=== PATIENT | male | born 1985 | race Caucasian/White ===

== ENCOUNTER 2017-12-15 10:12 | Emergency (ER) | payer BC ==
--- NOTE | 2017-12-15 10:37 | ER ---
Nurse's Notes [facility] Name: Benjamín Rosa Age: 32 yrs Sex: Male : 1985 Arrival Date: 12/15/2017 Time: 10:15 Bed 19 Private MD: None, None Diagnosis: Superficial injury of head-Hematoma Presentation: 12/15 10:20 Presenting complaint: Patient states: had a head injury last week, +LOC, fell sv backward onto concrete and "bump" was hard at the time. Noticed on Monday that it was soft. Denies seizures. Pt reports headache since incident. Transition of care: patient was not received from another setting of care. Mechanism of Injury: resulted from impacting a hard surface, hitting concrete. Onset of symptoms was December 07, 2017. Risk Assessment: Do you want to hurt yourself or someone else? Patient reports no desire to harm self or others. Initial Sepsis Screen: Does the patient meet any 2 criteria? No. Patient's initial sepsis screen is negative. Does the patient have a suspected source of infection? No. Patient's initial sepsis screen is negative. Care prior to arrival: None. 10:20 Method Of Arrival: Ambulatory sv 10:20 Acuity: NIKI 4 sv Historical: - Allergies: 10:22 No Known Allergies; sv - Home Meds: 10:22 None [Active]; sv - PMHx: 10:22 None; sv - PSHx: 10:22 None; sv - Immunization history:: Adult Immunizations up to date. - Social history:: Smoking status: Patient/guardian denies using tobacco, Patient uses alcohol, weekly. - Ebola Screening: : No symptoms or risks identified at this time. Vital Signs: 10:23 BP 113 / 79; Pulse 72; Resp 18; Pulse Ox 100% ; Weight 70.31 kg; Height 5 ft. 10 in. sv (177.80 cm); Pain 1/10; 10:23 Body Mass Index 22.24 (70.31 kg, 177.80 cm) sv Tino Coma Score: 10:20 Eye Response: spontaneous(4). Verbal Response: oriented(5). Motor Response: obeys sv commands(6). Total: 15. 10:37 Eye Response: spontaneous(4). Verbal Response: oriented(5). Motor Response: obeys jr8 commands(6). Total: 15. ED Course: 10:15 Patient arrived in ED. mr 10:15 None, None is Private Physician. mr 10:22 Triage completed. sv 10:23 Arm band placed on right wrist. sv 10:24 Reuben Pham PA is PHCP. jr8 10:24 Pavel Pascual MD is Attending Physician. jr8 Administered Medications: No medications were administered Outcome: 10:37 Discharge ordered by . jr8 10:48 Patient left the ED. iw Signatures: Serena Quezada, RN RN Shanna Liu mr Liberty Starr, RN RN Reuben Pham PA PA jr8 Corrections: (The following items were deleted from the chart) 10:23 10:20 Presenting complaint: Patient states: had a head injury last week, +LOC, sv fell backward onto concrete and "bump" was hard at the time. Noticed on Monday that it was soft. sv
--- NOTE | 2017-12-15 10:37 | EDPHYS ---
Physician Documentation [facility] Name: Benjamín Rosa Age: 32 yrs Sex: Male : 1985 Arrival Date: 12/15/2017 Time: 10:15 Bed 19 Private MD: None, None ED Physician Pavel Pascual HPI: 12/15 10:37 This 32 yrs old Male presents to ER via Ambulatory with complaints of Head jr8 Injury-Adult. 10:37 The patient or guardian reports pain, swelling, tenderness. The complaints affect the jr8 right side of the back of head. Context of injury: The problem was sustained outdoors, resulted from a fall. Onset: The symptoms/episode began/occurred acutely, 1 week(s) ago. Associated signs and symptoms: Loss of consciousness: This patient experience a loss of consciousness. Severity of symptoms: At their worst the symptoms were moderate, in the emergency department the symptoms have improved, markedly. The patient has not experienced similar symptoms in the past. The patient has not recently seen a physician. Patient stated that he still feels soft spot to back of head. Had fallen and hit back of head a week ago. Stated that he + LOC for about 20 seconds. Since then has only had mild headaches on/off but otherwise back to normal. Wanted to see what the soft spot was on back of head . Historical: - Allergies: 10:22 No Known Allergies; sv - Home Meds: 10:22 None [Active]; sv - PMHx: 10:22 None; sv - PSHx: 10:22 None; sv - Immunization history:: Adult Immunizations up to date. - Social history:: Smoking status: Patient/guardian denies using tobacco, Patient uses alcohol, weekly. - Ebola Screening: : No symptoms or risks identified at this time. ROS: 10:37 Eyes: Negative for injury, pain, redness, and discharge, ENT: Negative for injury, jr8 pain, and discharge, Neck: Negative for injury, pain, and swelling, Cardiovascular: Negative for chest pain, palpitations, and edema, Respiratory: Negative for shortness of breath, cough, wheezing, and pleuritic chest pain, Abdomen/GI: Negative for abdominal pain, nausea, vomiting, diarrhea, and constipation, Back: Negative for injury and pain, MS/Extremity: Negative for injury and deformity, Skin: Negative for injury, rash, and discoloration. 10:37 Neuro: Positive for headache, Negative for altered mental status, dizziness, gait disturbance, hearing loss, loss of consciousness, numbness, seizure activity, speech changes, syncope, near syncope, tingling, tinnitus, tremor, visual changes, weakness. Exam: 10:37 Eyes: Pupils equal round and reactive to light, extra-ocular motions intact. Lids and jr8 lashes normal. Conjunctiva and sclera are non-icteric and not injected. Cornea within normal limits. Periorbital areas with no swelling, redness, or edema. ENT: Nares patent. No nasal discharge, no septal abnormalities noted. Tympanic membranes are normal and external auditory canals are clear. Oropharynx with no redness, swelling, or masses, exudates, or evidence of obstruction, uvula midline. Mucous membranes moist. Neck: Trachea midline, no thyromegaly or masses palpated, and no cervical lymphadenopathy. Supple, full range of motion without nuchal rigidity, or vertebral point tenderness. No Meningismus. Cardiovascular: Regular rate and rhythm with a normal S1 and S2. No gallops, murmurs, or rubs. Normal PMI, no JVD. No pulse deficits. Respiratory: Lungs have equal breath sounds bilaterally, clear to auscultation and percussion. No rales, rhonchi or wheezes noted. No increased work of breathing, no retractions or nasal flaring. Abdomen/GI: Soft, non-tender, with normal bowel sounds. No distension or tympany. No guarding or rebound. No evidence of tenderness throughout. Back: No spinal tenderness. No costovertebral tenderness. Full range of motion. Skin: Warm, dry with normal turgor. Normal color with no rashes, no lesions, and no evidence of cellulitis. MS/ Extremity: Pulses equal, no cyanosis. Neurovascular intact. Full, normal range of motion. Neuro: Awake and alert, GCS 15, oriented to person, place, time, and situation. Cranial nerves II-XII grossly intact. Motor strength 5/5 in all extremities. Sensory grossly intact. Cerebellar exam normal. Normal gait. 10:37 Head/face: Noted is hematoma, that is mild, of the right side of the back of head. Vital Signs: 10:23 BP 113 / 79; Pulse 72; Resp 18; Pulse Ox 100% ; Weight 70.31 kg; Height 5 ft. 10 in. sv (177.80 cm); Pain 1/10; 10:23 Body Mass Index 22.24 (70.31 kg, 177.80 cm) sv Tino Coma Score: 10:20 Eye Response: spontaneous(4). Verbal Response: oriented(5). Motor Response: obeys sv commands(6). Total: 15. 10:37 Eye Response: spontaneous(4). Verbal Response: oriented(5). Motor Response: obeys jr8 commands(6). Total: 15. MDM: 10:24 Patient medically screened. jr8 10:36 Data reviewed: vital signs, nurses notes, and as a result, I will discharge patient. jr8 Data interpreted: Pulse oximetry: on room air is 100 %. Interpretation: normal. Counseling: I had a detailed discussion with the patient and/or guardian regarding: the historical points, exam findings, and any diagnostic results supporting the discharge/admit diagnosis, the need for outpatient follow up, a family practitioner, to return to the emergency department if symptoms worsen or persist or if there are any questions or concerns that arise at home. 10:37 ED course: Discussed with patient that he has hematoma to back of head. Could not rule jr8 out further intracranial injury without CT of head. Patient does not want this at time. Told him to have close f/u. If not better or worse to come back for imaging. Patient good with this and would follow instructions . Administered Medications: No medications were administered Disposition: 11:52 Co-signature as Attending Physician, Pavel Pascual MD. rn Disposition: 12/15/17 10:37 Discharged to Home. Impression: Superficial injury of head - Hematoma. - Condition is Stable. - Discharge Instructions: Head Injury, Adult, Hematoma. - Medication Reconciliation Form, Thank You Letter, Antibiotic Education, Prescription Opioid Use form. - Follow up: Private Physician; When: 1 week; Reason: Recheck today's complaints, Continuance of care, Re-evaluation by your physician. - Problem is new. - Symptoms are unchanged. Signatures: Serena Quezada RN RN sv Williams, Irene, RN RN iw Nieto, Roman, MD MD rn Roszak, Josh, PA PA jr8 Corrections: (The following items were deleted from the chart) 10:48 10:37 12/15/2017 10:37 Discharged to Home. Impression: Superficial injury of head - iw Hematoma. Condition is Stable. Forms are Medication Reconciliation Form, Thank You Letter, Antibiotic Education, Prescription Opioid Use. Follow up: Private Physician; When: 1 week; Reason: Recheck today's complaints, Continuance of care, Re-evaluation by your physician. Problem is new. Symptoms are unchanged. jr8
== END 2017-12-15 10:48 | disposition home or self-care (01) ==
LOC: ER 10:12
DX: S00.80XA Unspecified superficial injury of other part of head, initial encounter (principal); W19.XXXA Unspecified fall, initial encounter; Y93.9 Activity, unspecified; Y92.89 Other specified places as the place of occurrence of the external cause; Z72.0 Tobacco use
CPT/HCPCS: 99281